=== PATIENT | female | born 1970 | race Caucasian/White ===

== ENCOUNTER 2024-07-28 05:36 | Day surgery (SDC) | payer MEDICAID ==
[2024-07-24 12:03] LABS: BASOPHILS # (AUTO) 0.1 X10'3 (0-0.2); BASOPHILS % (AUTO) 1.4 % (0-1); EOSINOPHILS # (AUTO) 0.3 X10'3 (0-0.9); EOSINOPHILS % (AUTO) 5.4 % (0-6); LYMPHOCYTES # (AUTO) 1.3 X10'3 (1.1-4.8); LYMPHOCYTES % (AUTO) 20.8 % (21-51); MEAN CORPUSCULAR HEMOGLOBIN 30.9 PG (27.0-31.0); MEAN CORPUSCULAR HGB CONC 33.2 g/dL (33.0-36.5); MEAN CORPUSCULAR VOLUME 92.8 FL (78-98); MEAN PLATELET VOLUME 8.4 FL (7.4-10.4); MONOCYTES # (AUTO) 0.4 X10'3 (0-0.9); MONOCYTES % (AUTO) 5.7 % (2-12); NEUTROPHILS # (AUTO) 4.1 X10'3 (1.8-7.7); NEUTROPHILS % (AUTO) 66.7 % (42-75); PRE OP HEMATOCRIT 44.8 % (35.0-45.0); PRE OP HEMOGLOBIN 14.9 g/dL (12.0-16.0); PRE OP PLATELET COUNT 303 X10'3 (140-440); PRE OP WHITE BLOOD COUNT 6.2 10'3 (4.8-10.8); RED BLOOD COUNT 4.82 X10'6 (4.20-5.60)
[2024-07-24 12:13] LABS: PRE OP INR 1.1 INR
[2024-07-24 12:19] LABS: ALBUMIN 3.3 G/DL (3.4-5.0); ALBUMIN/GLOBULIN RATIO 1.1 (1.1-1.5); ALKALINE PHOSPHATASE 114 IU/L (46-116); BLOOD UREA NITROGEN 13 MG/DL (7-18); BUN/CREATININE RATIO 11.1 (10.0-20.0); CALCIUM 8.9 MG/DL (8.5-10.1); CHLORIDE 111 MMOL/L (99-107); CREATININE 1.17 MG/DL (0.40-0.90); PRE OP ALT 16 U/L (30-65); PRE OP ANION GAP 5 (8-16); PRE OP AST 4 U/L (10-37); PRE OP BILIRUB, TOTAL 0.3 MG/DL (0.0-1.0); PRE OP GLUCOSE 113 MG/DL (70-104); PRE OP POTASSIUM 4.1 MMOL/L (3.4-5.1); PRE OP SODIUM 141 MMOL/L (135-145); TOTAL CARBON DIOXIDE 24.7 MMOL/L (24-32); TOTAL PROTEIN 6.3 G/DL (6.4-8.2); eGFR 48 ML/MIN
[2024-07-28] VITALS (11 sets, daily range): BP systolic 94–149; BP diastolic 63–86; PULSE 65–86; RESP 15–22; TEMP 98.1; O2SAT 93–100
[~2024-07-28] VITALS: Ht 167.6 cm; Wt 102.5 kg
[~2024-07-28 05:36] MED LIST: ASPI-10 PO; ATOR20TA66 PO; BUPR-564 PO; CELE-127 PO; CHOL125D PO; DICY10CA18 PO; DULO60CA65 PO; FERR-97 PO; GABA300C PO; HYDR-3686 PO; LAMO100T PO; LEVO50TA8 PO; METF-1203 PO; METH20CP PO; OMEG1CAP21 PO; PANT40TA54 PO; PRAZ2CAP2 PO; PREG75CA76 PO; SEMA3TAB4 PO; TIZA4CAP PO; TOPI-95 PO; TRAZ-251 PO; VALA500T41 PO; VITA1CAP PO
[2024-07-28] MEDS: famotidine 20mg tablet PO ONE (06:20)
[2024-07-28] MEDS: ringers solution, lacted 1,000 ML IV SCH ×2 (06:21→10:30)
[2024-07-28] MEDS: ceFOXitin 2GM-NS 100mL ADDvant 100 ML IV ONE (06:22)
[2024-07-28 06:47] LABS: BILIRUBIN,URINE NEGATIVE (Neg); CLARITY,URINE CLEAR (Clear); COLOR,URINE YELLOW (Yellow); GLUCOSE, URINE NEGATIVE (Neg); KETONES,URINE NEGATIVE (Neg); LEUKOCYTE ESTERASE ,URINE SMALL (Neg); NITRITES, URINE NEGATIVE (Neg); OCCULT BLOOD,URINE NEGATIVE (Neg); PROTEIN,URINE NEGATIVE (Neg)
[2024-07-28] MEDS ORDERED: BUPIVAcaine 2.5mg/ml inj 50ml vial (contains preservative) ONE (06:47)
[2024-07-28 07:05] LABS: UA COLLECTION TYPE NON-SPECIFIED
[2024-07-28 07:08] LABS: BACTERIA,URINE FEW /HPF (Neg)
[2024-07-28 07:09] LABS: MUCUS STRANDS FEW /LPF (Neg); SQUAMOUS EPITHELIAL CELL,UR MODERATE /LPF (FEW)
[2024-07-28] MEDS ORDERED: midazolam 1 mg/ML 2ml injection ONE (07:50)
[2024-07-28] MEDS ORDERED: fentaNYL/PF 50MCG/1 ML 2ML syringe ONE (07:50)
[2024-07-28] MEDS ORDERED: dexamethasone sod phosphate 4mg/ml inj. ONE (07:51)
[2024-07-28] MEDS ORDERED: acetaminophen 1,000mg/100ml IV 100 ML IV ONE (07:51)
[2024-07-28] MEDS ORDERED: LIDOcaine 2% (20mg/ml) 5ml vial ONE (07:51)
[2024-07-28] MEDS ORDERED: ondansetron/PF 4mg/2ml inj ONE (07:51)
[2024-07-28] MEDS ORDERED: propofol inj 20 ML IV ONE (07:51)
[2024-07-28] MEDS ORDERED: rocuronium 10mg/ml inj IV ONE (07:52)
[2024-07-28] MEDS ORDERED: sevoflurane 250ml liquid IH ONE (08:07)
[2024-07-28] MEDS ORDERED: ePHEDrine 50MG/ML INJ. ONE (08:31)
[2024-07-28] MEDS ORDERED: ondansetron/PF 4mg/2ml inj IV PRN (08:55)
[2024-07-28] MEDS ORDERED: fentaNYL/PF 50MCG/1 ML 2ML syringe IV PRN (08:55)
[2024-07-28] MEDS ORDERED: morphine 4 MG/ML inj SYRINge IV PRN (08:55)
[2024-07-28] MEDS ORDERED: morphine 2 MG/ML inj. syringe IV PRN (08:55)
[2024-07-28] MEDS ORDERED: hydrALAZINE 20mg/ml inj. IV PRN (08:55)
[2024-07-28] MEDS ORDERED: labetalol 20mg/4ml (5mg/ml) syringe IV PRN (08:55)
[2024-07-28] MEDS ORDERED: sugammadex 200mg/2ml injection IV ONE (08:58)
[2024-07-28] MEDS: BUPIVAcaine 2.5mg/ml inj 50ml vial (contains preservative) IJ ONE (09:28)
[2024-07-28] MEDS: fentaNYL/PF 50MCG/1 ML 2ML syringe IV PRN (09:59)
[2024-07-28] MEDS: ketorolac trometh 30MG/ML vial 30 MG/ML VIAL IV ONE (10:13)
[2024-07-28] MEDS: HYDROcodone/acetaminophen 5mg/325mg tablet PO ONE (10:45)
== END 2024-07-28 11:03 | disposition home or self-care (01) ==
LOC: PAS 05:36
PROVIDERS: ATTEND Surgery
DX: K80.10 Calculus of gallbladder with chronic cholecystitis without obstruction (principal); K82.8 Other specified diseases of gallbladder; Z79.01 Long term (current) use of anticoagulants; Z79.899 Other long term (current) drug therapy; Z98.890 Other specified postprocedural states; F31.9 Bipolar disorder, unspecified; F41.8 Other specified anxiety disorders; K21.9 Gastro-esophageal reflux disease without esophagitis; E03.9 Hypothyroidism, unspecified; F90.9 Attention-deficit hyperactivity disorder, unspecified type; Z87.891 Personal history of nicotine dependence
CPT/HCPCS: 36415; 47562; 71045; 80053; 81001; 82948; 85025; 85610; 85730; 86885; 86900; 86901; 93005; J0131; J0694; J1100; J1885; J2250; J2405; J2704; J3010; J3490; J7030; J7120; S2900; Z7506; Z7508; Z7512; A4215; A4618; A7000